=== PATIENT | female | born 1950 | race Caucasian/White ===

== ENCOUNTER 2018-05-13 07:24 | Observation (INO) ==
--- NOTE | 2018-05-08 12:35 | MH ---
cc: Ines Thakkar MD DATE OF ADMISSION: 05/13/2018 ADMITTING DIAGNOSIS: Osteoarthritic degeneration, right knee, now being admitted for right total knee arthroplasty. HISTORY OF PRESENT ILLNESS: A 68-year-old female is being admitted today for right total knee arthroplasty due to severe painful osteoarthritic degeneration, right knee. PAST MEDICAL HISTORY: The patient has a history of anxiety. CURRENT MEDICATIONS: 1. Lovastatin. 2. Levothyroxine. 3. She stopped the alprazolam and ranitidine. PAST SURGICAL HISTORY: No previous surgeries. REVIEW OF SYSTEMS: Noncontributory. FAMILY HISTORY: Noncontributory. She does not drink, does smoke cigarettes. ALLERGIES: NO KNOWN ALLERGIES. PHYSICAL EXAMINATION: GENERAL: A 68-year-old female, well-developed, well-nourished, oriented x3, complaining of pain in her right knee. VITAL SIGNS: Blood pressure 128/78, pulse 64 and regular, respirations 16, temperature 97.9, pulse oximetry 97% on room air. HEENT: Eyes: PERRL. EOMI. Ears, nose, mouth clear. NECK: Supple. LUNGS: Clear. HEART: Regular rate. ABDOMEN: Soft, positive bowel sounds, nontender. EXTREMITIES: The right knee has crepitus on range of motion. She is neurovascularly intact to her toes. No swelling or erythema. IMPRESSION: Severe painful osteoarthritic degeneration, right knee. PLAN: Admission for right total knee arthroplasty today. Ines Thakkar MD JRR/ts , 12:00 PM , 12:06 PM
[2018-05-13] MEDS ORDERED: ceFAZolin Inj 500 MG Vial ONE ×2 (07:43→08:44)
[2018-05-13] MEDS ORDERED: Sodium Chlor 0.9% Inj 500 ML IV.CONT ONE (07:45)
[2018-05-13] MEDS ORDERED: Chlorhexidine Gluconate 2% 1 Pack (2 Cloths) TOPICAL ONE (07:45)
[2018-05-13] MEDS ORDERED: Metoprolol Tartrate 25 MG Tablet PO ONE (07:45)
[2018-05-13] MEDS ORDERED: SODIUM CHLOR 0.9% IV.SIG SCH (08:00)
[2018-05-13] MEDS ORDERED: ceFAZolin 2 GM Premix Inj 2 GM/50 ML PIGGYBACK IV.SIG SCH (08:00)
[2018-05-13] MEDS ORDERED: Vancomycin Inj 1,000 MG in Sodium Chlor 0.9% Inj 250 ML IV.SIG SCH (08:00)
[2018-05-13] MEDS ORDERED: TRANEXAMIC ACID IV.SIG SCH (08:00)
[2018-05-13] MEDS ORDERED: Sodium Chlor 0.9% Inj 80 ML, Bupivacaine Liposo PF 1.3% Inj 20 ML P-ARTICULR SCH ×2 (08:00)
[2018-05-13] MEDS ORDERED: Chlorhexidine 4% Topical 120 APPLIC/120 ML Bottle TOPICAL SCH (08:00)
[2018-05-13] MEDS ORDERED: Ropivacaine 0.5% PF Inj 20 ML Vial ONE (08:22)
[2018-05-13] MEDS ORDERED: Famotidine PF Inj 20 MG/2 ML Vial ONE (08:26)
[2018-05-13] MEDS ORDERED: Sodium Chlor 0.9% Inj 80 ML, Bupivacaine Liposo PF 1.3% Inj 20 ML, Bupivacaine PF 0.25%... P-ARTICULR SCH ×3 (08:45)
[2018-05-13] MEDS ORDERED: Morphine Sulfate Inj 2 MG/ML Vial IV.PUSH PRN (08:55)
[2018-05-13] MEDS ORDERED: Bisacodyl 10 MG Supp RECTAL PRN (08:55)
[2018-05-13] MEDS ORDERED: Post-op Orders (for Pharmacy) OTHER STA (08:55)
[2018-05-13] MEDS: Senna/Docusate Sodium 8.6/50 MG Tablet PO SCH ×2 (09:00→23:11)
[2018-05-13] MEDS: Levothyroxine 125 MCG Tablet PO SCH (09:00)
[2018-05-13] MEDS: Multivitamin/Minerals Therapeutic Tablet PO SCH ×2 (09:00→23:12)
[2018-05-13] MEDS: Famotidine 20 MG Tablet PO SCH ×2 (09:00→23:12)
--- NOTE | 2018-05-13 09:00 | P.DCO ---
- Diagnosis (1) Status post total right knee replacement using cement Status: Acute - Physical Therapy Order: Evaluate and treat, Improve ambulation, Strength and gait training - Home Health Nursing Order: Medical education - Case Management Consult Case Management Consult-Home Health: Yes - Certification I have seen patient Viridiana Paulino on 05/13/18. My clinical findings support the need for the requested home health care services because: Limited ability to care for self, High risk of falls I certify that my clinical findings support that this patient is homebound because: Post-op weakness, Unsteady gait/balance
[2018-05-13] MEDS ORDERED: Tranexamic Acid Inj 1,000 MG in Sodium Chlor 0.9% Inj 100 ML IV.SIG SCH (11:00)
[2018-05-13] MEDS ORDERED: fentaNYL Citrate Inj 100 MCG/2 ML Ampul ONE ×2 (11:17)
[2018-05-13] MEDS ORDERED: *morphine SULFATE 4 MG/ML PERIprocedure ONLY ONE ×2 (11:24→11:43)
--- NOTE | 2018-05-13 12:16 | MP ---
cc: Ines Thakkar MD DATE OF OPERATION: 05/13/2018 DATE OF SURGERY: 05/13/2018 PREOPERATIVE DIAGNOSIS: Osteoarthritic degeneration, right knee POSTOPERATIVE DIAGNOSIS: Osteoarthritic degeneration, right knee. SURGERY PERFORMED: Right total knee arthroplasty using Consensus components, size 2 femur, 2 tibia, 10 insert and size 1 patella, 2 batches of antibiotic-impregnated cement. SURGEON: Ines Thakkar MD DIABETES TERRITORY MANAGER: Afshan Rosario APRN ANESTHESIA: General intubation block. PROCEDURE: After successful induction of anesthesia, the patient is placed on the operating room table in the supine position. The knee is prepped and draped in the usual manner. A tourniquet is inflated at the upper thigh and set to 300 mmHg pressure after exsanguination of the lower extremity. A longitudinal incision is made extending from 3 inches proximal to the superior pole of the patella, across the patella in longitudinal fashion, and down past the insertion of the tibial tubercle into the proximal tibia. The incision is carried down through subcutaneous tissue along the medial aspect of the patella and retinaculum, down through the capsule to expose the knee joint. The patella and patellar tendon are freed up enough to allow the patella to be inverted and retracted off the lateral side of the knee joint. The knee joint is left exposed. Small osteophytes are removed. All soft tissue is removed to allow proper position of the femoral and tibial cutting jig guide. The first femoral jig is then inserted along the distal end of the femur after first measuring to decide whether this is a small, medium, or large component. The notch is then drilled and the tibial cutting guide inserted into the femoral cutting guide, along with the ankle brace to allow for proper measurement of the tibial cutting surface that needed to be resected. Pins are inserted into the tibial cutting jig and femoral cutting jig to hold them in place. An oscillating saw is then used to resect the surface of the tibia. The surface of the tibia is then completely removed using sharp and blunt dissection. The anterior and posterior cuts of the femur are then made as well using an oscillating saw through the cutting guide. All guides are then removed and the varus/valgus angulation cutting guide applied to the femur for proper measurement of the proper amount of valgus. The anterior cutting guide for the femur is then inserted at the anterior femoral cuts made. Next, the first block trial is inserted into the femur to allow for proper condyle drill holes to be made which are then made followed by removal of the bone between the condyles using an oscillating saw as well as the bone removed at the most posterior surface of the condyle. After this, this guide is removed and the chamfer cuts made using the chamfer cutting guide from both anterior and posterior. Next, the femoral trial is then inserted, the tibial surface reflected anterior to expose the tibial surface and a tibial stem guide is inserted after first measuring for a standard, standard plus, large, or large plus surface to be used. After the stem is impacted the trial tibial surface is applied followed by the trial meniscal components. After full range of motion is found with the appropriate length meniscal components varying the patella is prepared by resecting the posterior aspect of the patella using an oscillating saw, inserting a trial. The trial is then removed and the cruciate cutting guide applied using the bur to cut the cruciate cuts. After cruciate cuts are made all trials are removed. The wound is irrigated copiously with antibiotic solution and Water Pik and the actual components inserted into place using the aforementioned components. After the cement has hardened and the components are found to have full range of motion with no instability, the tourniquet is deflated, total tourniquet time being 43 minutes at 300 mmHg pressure. The wound again is irrigated copiously with antibiotic solution, meticulous hemostasis achieved. Two Autovac tubes inserted, followed by closure of the deep fascia with both running and interrupted #1 Vicryl suture, subcutaneous tissue approximated using interrupted 2-0 Vicryl sutures, and skin approximated with anca. Wet and dry dressing is applied to the wound followed by Xeroform gauze, sterile dressing and knee immobilizer. The patient tolerated the procedure well and left the Operating Room in satisfactory condition. ESTIMATED BLOOD LOSS: 100 mL. COUNTS: Sponge and suture counts were correct. COMPONENTS: The components used were Consensus components, size 2 femur, 2 tibia, 10 insert and size 1 patella. 120 mL of mixture of Exparel, normal saline and 0.25% Marcaine plain was inserted around the knee joint for extra pain control. Meticulous hemostasis achieved. Deep fascia approximated with running #2 Quill. Subcutaneous tissue approximated using running 2-0 and 3-0 Quill and Prineo dressing and knee immobilizer. No drain utilized. The patient tolerated the procedure well and left the operating room in satisfactory condition. Jessica Grant APRN, was present during the entire procedure to include patient positioning as well as the procedure itself. The medical necessity of nurse practitioner personal care assistant was indicated in this case due to the surgical complexity of the case itself. During the surgical case, the surgical garment assembler was working the back table on my assembler surgical garment GENARO was directly assisting me. J. Caleb Thakkar MD JRR/lh , 10:50 AM , 10:55 AM
--- NOTE | 2018-05-13 12:17 | XR ---
EXAM DATE: 05/13/2018 12:02 PM EST AGE/SEX: 68 years / Female INDICATIONS: Post op right knee surgery CLINICAL DATA: This is the patient's initial encounter. Patient reports that signs and symptoms have been present for 1 day and indicates a pain score of 6/10. MEDICAL/SURGICAL HISTORY: None. None. COMPARISON: No prior exams available for comparison. FINDINGS: Postsurgical changes following joint replacement are noted. Prosthetic components are well seated in satisfactory alignment. Bony structures remain intact. CONCLUSION: Satisfactory postoperative appearance of the right knee following joint replacement. Electronically signed by: Vaughn Wilde MD 05/13/2018 12:16 PM EST
[2018-05-13] MEDS: ceFAZolin 1 GM Premix Inj 1 GM/50 ML FROZ.PIGGY IV.SIG SCH ×2 (16:15→23:13)
[2018-05-13] MEDS ORDERED: Lidocaine PF 1% Inj 5 ML Syringe OTHER ONE (18:30)
[2018-05-13] MEDS ORDERED: Neostigmine Inj 5 MG/5 ML Syringe IV.PUSH ONE (18:30)
[2018-05-14] MEDS: ceFAZolin 1 GM Premix Inj 1 GM/50 ML FROZ.PIGGY IV.SIG SCH (04:50)
[2018-05-14] MEDS: Levothyroxine 125 MCG Tablet PO SCH (06:48)
[2018-05-14 06:54] LABS: Hematocrit 30.3 % (35.0-46.0)
--- NOTE | 2018-05-14 08:17 | P.PNOP ---
Subjective Interval history: Pt painful today. Physical Exam Vital signs: Vital Signs 05/13/18 11:09 05/13/18 11:15 05/13/18 11:30 Temperature 97.5 F L Pulse Rate 65 56 L 56 L Respiratory Rate 14 16 17 Blood Pressure 125/59 L 132/56 L 131/58 L Pulse Oximetry 96 94 L 99 05/13/18 11:32 05/13/18 11:45 05/13/18 11:48 Temperature Pulse Rate 57 L Respiratory Rate 16 12 16 Blood Pressure 118/55 L Pulse Oximetry 100 05/13/18 12:00 05/13/18 12:14 05/13/18 13:20 Temperature 97.6 F 97.1 F L Pulse Rate 53 L 56 L 64 Respiratory Rate 13 30 H 16 Blood Pressure 122/57 L 125/60 121/58 L Pulse Oximetry 99 97 95 05/13/18 14:52 05/13/18 16:00 05/13/18 17:44 Temperature 97.3 F L Pulse Rate 68 Respiratory Rate 16 16 Blood Pressure 147/67 H Pulse Oximetry 98 99 05/13/18 19:11 05/13/18 20:00 05/14/18 00:00 Temperature 97.6 F 98.3 F Pulse Rate 81 83 Respiratory Rate 16 18 18 Blood Pressure 151/65 H 134/64 Pulse Oximetry 100 97 05/14/18 04:00 Temperature 99.2 F Pulse Rate 80 Respiratory Rate 18 Blood Pressure 128/62 Pulse Oximetry 98 Intake & Output 05/13/18 05/14/18 05/14/18 18:59 06:59 18:59 Intake Total 3158.58 / 3158.58 50 / 50 Output Total 100 / 100 Balance 3058.58 / 3058.58 50 / 50 Weight 85.8 kg 88.3 kg Intake: IV 1518.58 / 1518.58 LR 1000 mL Inj 1,000 ML @ 30 1000 / 1000 mls/hr IV.CONT .Q24H ONE Rx#: [id number] Cyklokapron Inj 1,000 MG In NS 218.58 / 218.58 Inj 100 ML @ 200 mls/hr IV.SIG [employer] [facility] Rx#:[id number] Vancomycin Inj 1,000 MG In NS 250 / 250 Inj 250 ML @ 250 mls/hr IV.SIG [employer] [facility] Rx#:[id number] Ancef 1 GM Premix Inj 1 gm In 50 / 50 50 ml @ 100 mls/hr IV.SIG Q6H [facility] Rx#:[id number] Oral 240 / 240 50 / 50 Anesthesia Amount 1400 / 1400 Output: Estimated Blood Loss 100 / 100 Other: # Voids 0 1 Date of Last Bowel Movement 05/12/18 # Bowel Movements 0 Weight On Admission 85.8 kg - Constitutional no acute distress Results - Labs CBC & Chem 7: 05/14/18 05:16 Laboratory Results - last 24 hr 05/14/18 05:16 Hgb 10.0 L Hct 30.3 L - Imaging Impressions Knee X-Ray 05/13/18 08:55 CONCLUSION: Satisfactory postoperative appearance of the right knee following joint replacement. Assessment and Plan - Problem List (1) Status post total right knee replacement using cement Code(s): Z96.651 - Presence of right artificial knee joint Status: Acute - Attending Attestation Attending Attestation: Dressing intact. NV intact to toes. No calf tenderness. PLan for patient to continue PT, OOB, pain meds. Probable discharge tomorrow to home with [facility].
[2018-05-14] MEDS: Senna/Docusate Sodium 8.6/50 MG Tablet PO SCH ×2 (08:46→21:36)
[2018-05-14] MEDS: Multivitamin/Minerals Therapeutic Tablet PO SCH ×2 (08:46→21:36)
[2018-05-14] MEDS: Famotidine 20 MG Tablet PO SCH ×2 (08:47→21:37)
[2018-05-15 05:41] LABS: Hematocrit 28.3 % (35.0-46.0); Hemoglobin 9.5 gm/dL (11.6-15.3)
[2018-05-15] MEDS: Levothyroxine 125 MCG Tablet PO SCH (06:29)
[2018-05-15] MEDS: Multivitamin/Minerals Therapeutic Tablet PO SCH (08:16)
[2018-05-15] MEDS: Senna/Docusate Sodium 8.6/50 MG Tablet PO SCH (08:16)
[2018-05-15] MEDS: Famotidine 20 MG Tablet PO SCH (08:16)
--- NOTE | 2018-05-15 10:00 | P.PNOP ---
Subjective Interval history: Patient more comfortable today. No complaints of nausea. Ready for discharge Physical Exam Vital signs: Vital Signs 05/14/18 12:00 05/14/18 16:00 05/14/18 20:00 Temperature 98.3 F 98.3 F 98.9 F Pulse Rate 70 69 74 Respiratory Rate 16 17 17 Blood Pressure 123/60 141/63 H 129/63 Pulse Oximetry 96 94 L 95 05/15/18 00:00 05/15/18 01:37 05/15/18 03:20 Temperature 98.4 F Pulse Rate 87 Respiratory Rate 17 17 17 Blood Pressure 124/56 L Pulse Oximetry 94 L 05/15/18 04:00 05/15/18 08:00 Temperature 98.9 F 98.8 F Pulse Rate 89 93 H Respiratory Rate 17 18 Blood Pressure 130/61 127/93 H Pulse Oximetry 94 L 93 L Intake & Output 05/14/18 05/15/18 05/15/18 18:59 06:59 18:59 Intake Total 600 / 600 480 / 480 Balance 600 / 600 480 / 480 Weight 88.3 kg Intake: Oral 600 / 600 480 / 480 Other: # Voids 3 2 Date of Last Bowel Movement 05/12/18 05/12/18 # Bowel Movements 0 - Constitutional no acute distress Results - Labs CBC & Chem 7: 05/15/18 04:57 Laboratory Results - last 24 hr 05/15/18 04:57 Hgb 9.5 L Hct 28.3 L Assessment and Plan - Problem List (1) Status post total right knee replacement using cement Code(s): Z96.651 - Presence of right artificial knee joint Status: Acute - Attending Attestation Attending Attestation: Patient currently in bed on CPM. Dressing is dry and intact. She has no calf tenderness and is neurovascularly intact to her toes. Plan is for patient to have therapy today and go to joint class then home with home health care. We will try to get her CPM at home as well. She has an appointment for follow-up next week. She may continue with Flexeril at home as needed.
--- NOTE | 2018-05-15 10:22 | MD ---
cc: Ines Thakkar MD DATE OF DISCHARGE: 05/15/2018 ADMITTING DIAGNOSIS: Osteoarthritic degeneration, left knee. DISCHARGE DIAGNOSIS: Osteoarthritic degeneration, left knee. DISCHARGE SUMMARY: This pleasant 68-year-old female 05/13/2018, with severe osteoarthritic degeneration and pain of left knee at which time she underwent a left total knee arthroplasty. She received a course of prophylactic IV antibiotics; and within 23 hours, started on anticoagulation therapy. She continued to improve, tolerating p.o. pain medication and tolerating food fluids well after the first day of nausea, which was treated with Phenergan. The patient continued to improve, tolerating physical therapy; and was discharged to home on second postoperative day in good condition with instructions to continue with home health care, physical therapy, and followup appointment the following week for recheck. She has prescriptions for pain and anticoagulation medicine at home. MD NIMISHA Taylor/ale , 10:08 AM , 10:13 AM
[2018-05-15 14:28] VITALS: BP 140/87; PULSE 85; RESP 19; TEMP 99.1; O2SAT 97
== END 2018-05-15 16:15 | disposition home health service (06) ==
LOC: HSDI 07:24 → HSDC 07:24 → N06 12:29
PROVIDERS: ADMIT Surgery; ATTEND Surgery